=== PATIENT | male | born 1950 | race African-American/Black ===

== ENCOUNTER 2017-03-08 12:27 | Emergency (ER) | payer OTHER ==
[2017-03-08 13:04] LABS: #Eosinphils 0.3 thou/uL (0.0-0.7); #Lymphocytes 1.4 thou/uL (1.20-3.40); #Monocytes 0.5 thou/uL (0.11-0.59); #Neutrophils 5.5 thou/uL (1.40-6.50); %Basophils 0.2 % (0.0-1.0); %Eosinophils 3.7 % (0.0-10.0); %Lymphocytes 18.5 % (21.0-51.0); %Monocytes 6.3 % (0.0-10.0); %Neutrophils 71.3 % (42.0-75.0); Hemoglobin 13.8 g/dL (14.0-18.0); Mean Corpuscular HGB CONC 32.2 g/dL (32.0-36.0); Mean Corpuscular Hemoglobin 31.7 pg (27.0-31.0); Mean Corpuscular Volume 98.4 fl (80.0-94.0); Mean Platelet Volume 8.8 fL (7.4-10.4); Platelet Count 155 thou/uL (130-400); RBC Distribution Width 12.7 % (11.5-14.5); Red Blood Cell (RBC) Count 4.36 mill/uL (4.70-6.10); White Blood Cell (WBC) Count 7.7 thou/uL (4.8-10.8)
[2017-03-08 13:18] LABS: Prothrombin Time 12.9 SEC (12.0-14.7)
--- NOTE | 2017-03-08 13:18 | RAD ---
CHEST ONE VIEW: History: Chest pain. Comparison: 2006 FINDINGS: The heart size is upper limits of normal. There is faint airspace opacity in both lung bases. No pneu mothorax. No acute osseous abnormality. IMPRESSION: 1. Cardiomegaly. 2. Faint opacities both lung bases may represent atelectasis or infection. Follow up recommended. POS: [facility]
[2017-03-08] MEDS ORDERED: Ketorolac Tromethamine 30 MG/ML VIAL ONE (13:22)
[2017-03-08] MEDS ORDERED: Metoclopramide HCl 10 MG/2 ML VIAL ONE (13:22)
[2017-03-08 13:27] LABS: ALT (SGPT) 20 U/L (8-55); AST (SGOT) 24 U/L (5-34); Alkaline Phosphatase 59 U/L (40-150); Anion Gap 12 mmol/L (10-20); BUN (Urea Nitrogen) 11 mg/dL (8.4-25.7); Bilirubin, Total 0.9 mg/dL (0.2-1.2); CK (CPK) 222 U/L (30-200); Calc. Creatinine Clearance 0 mL/min (70-130); Calcium 9.8 mg/dL (7.8-10.44); Carbon Dioxide 21 mmol/L (23-31); Chloride 110 mmol/L (98-107); Estimated GFR-MDRD 86; Globulin 3.1 g/dL (2.4-3.5); Glucose 107 mg/dL (80-115); Potassium 4.1 mmol/L (3.5-5.1); Protein, Total 7.1 g/dL (5.8-8.1); Sodium 139 mmol/L (136-145)
[2017-03-08 13:49] LABS: CKMB 2.3 ng/mL (0-6.6); Troponin I 0.022 ng/mL (< 0.028)
--- NOTE | 2017-03-08 14:24 | CT ---
CT HEAD NONCONTRAST: History: Headache with dizziness. FINDINGS: There is no evidence of ventriculomegaly, mass effect, midline shift, or acute intracranial hemorrhag e. There is scattered paranasal sinus mucosal thickening. IMPRESSION: No acute intracranial abnormalities. POS: [facility]
[2017-03-08 14:58] LABS: Bilirubin Negative (Negative); Blood, Urine Small (Negative); Clarity CLEAR (Clear); Glucose, Urine (Dipstick) Negative (Negative); Leukocyte Negative (Negative); Nitrite Negative (Negative); Protein, Urine (Dipstick) 30 mg/dL (Neg-Trace); Specific Gravity, Urine 1.017 (1.002-1.036)
[2017-03-08 15:00] LABS: Bacteria/HPF None Seen HPF (None Seen); Hyaline Casts/LPF 0-3 HYALINE CAST LPF (0-3 Hyaline); Pathc Cast-AUWi Flag 0.13 (0-2.49); Squamous Epithelial None Seen HPF (0-3); WBC/HPF None Seen HPF (0-3)
[2017-03-08] MEDS ORDERED: Lisinopril 10 MG TAB ONE (15:48)
[2017-03-08] MEDS ORDERED: Norepinephrine 4 MG/4 ML VIAL ONE (15:48)
--- NOTE | 2017-03-17 21:36 | EKG ---
Test Reason : Blood Pressure : / mmHG Vent. Rate : 074 BPM Atrial Rate : 074 BPM P-R Int : 214 ms QRS Dur : 150 ms QT Int : 420 ms P-R-T Axes : 011 097 109 degrees QTc Int : 466 ms Sinus rhythm with 1st degree A-V block Possible Left atrial enlargement Rightward axis Left bundle branch block Abnormal ECG Confirmed by JAYESH DONATO, NICHOLE ([id number]), market editor OTTO MOSES ([id number] on 03/17/2017 9:36:21 PM Referred By: Confirmed By:NICHOLE MCCONNELL MD
== END 2017-03-08 15:59 | disposition home or self-care (01) ==
LOC: ERS 12:27
DX: R51 Headache (principal); I11.0 Hypertensive heart disease with heart failure; I50.9 Heart failure, unspecified; Z79.899 Other long term (current) drug therapy
CPT/HCPCS: 36415; 70450; 71045; 80053; 81003; 81015; 82550; 82553; 84484; 85025; 85610; 85730; 93005; 96361; 96374; 96375; J1885; J2765

== ENCOUNTER 2019-01-04 16:31 | Emergency (ER) | payer OTHER ==
[2019-01-04] MEDS ORDERED: Ketorolac Tromethamine 30 MG/ML VIAL ONE (17:07)
[2019-01-04] MEDS ORDERED: Cyclobenzaprine 10 MG TAB ONE (17:07)
== END 2019-01-04 18:30 | disposition home or self-care (01) ==
LOC: ERS 16:31
DX: S16.1XXA Strain of muscle, fascia and tendon at neck level, initial encounter (principal); E78.5 Hyperlipidemia, unspecified; E78.00 Pure hypercholesterolemia, unspecified; I11.0 Hypertensive heart disease with heart failure; I50.9 Heart failure, unspecified; F43.10 Post-traumatic stress disorder, unspecified; Z79.899 Other long term (current) drug therapy; Z79.82 Long term (current) use of aspirin; X50.9XXA Other and unspecified overexertion or strenuous movements or postures, initial encounter
CPT/HCPCS: 96372; 99283; J1885